=== PATIENT | female | born 1965 | race Two or more races ===

== ENCOUNTER 2017-12-26 18:22 | Emergency (ER) | payer MEDICAID ==
[~2017-12-26] VITALS: Ht 162.6 cm; Wt 68.0 kg
[~2017-12-26 18:22] MED LIST: RANITIDINE HCL150 MG ORAL
[2017-12-26 19:04] VITALS: BP 168/95
[2017-12-26 19:29] LABS: BASOPHILS % (AUTO) 1.2 % (0.0-2.0); EOSINOPHILS % (AUTO) 1.3 % (0.0-3.0); HEMOGLOBIN 11.8 G/DL (12.0-16.0); LYMPHOCYTES % (AUTO) 30.8 % (20.0-45.0); MEAN CORPUSCULAR VOLUME 83 FL (80-99); MONOCYTES % (AUTO) 7.4 % (1.0-10.0); NEUTROPHILS % (AUTO) 59.3 % (45.0-75.0); PLATELET COUNT 377 K/UL (150-450); RED BLOOD COUNT 4.32 M/UL (4.20-5.40); RED CELL DISTRIBUTION WIDTH 14.8 % (11.6-14.8); WHITE BLOOD COUNT 8.8 K/UL (4.8-10.8)
[2017-12-26 19:38] LABS: APPEARANCE,URINE CLEAR; BILIRUBIN, URINE NEGATIVE (NEGATIVE); COLOR,URINE PALE YELLOW; GLUCOSE, URINE (UA) NEGATIVE (NEGATIVE); KETONES,URINE NEGATIVE (NEGATIVE); LEUKOCYTE ESTERASE ,URINE NEGATIVE (NEGATIVE); NITRITE,URINE NEGATIVE (NEGATIVE); PH,URINE 6.5 (4.5-8.0); PROTEIN,URINE NEGATIVE (NEGATIVE); UROBILINOGEN,URINE NORMAL MG/DL (0.0-1.0)
[2017-12-26 19:39] LABS: ANION GAP 13 mmol/L (5-15); BLOOD UREA NITROGEN 8 mg/dL (7-18); CALCIUM 9.2 MG/DL (8.5-10.1); CARBON DIOXIDE 23 MMOL/L (21-32); CHLORIDE 103 MMOL/L (98-107); CREATININE 0.7 MG/DL (0.55-1.30); POTASSIUM 3.2 MMOL/L (3.5-5.1); SODIUM 139 MMOL/L (136-145)
[2017-12-26 19:51] LABS: ALANINE AMINOTRANSFERASE 24 U/L (12-78); ALBUMIN 3.9 G/DL (3.4-5.0); ALBUMIN/GLOBULIN RATIO 0.9 (1.0-2.7); ALKALINE PHOSPHATASE 119 U/L (46-116); ASPARTATE AMINO TRANSFERASE 25 U/L (15-37); BILIRUBIN,TOTAL 0.1 MG/DL (0.2-1.0)
[2017-12-26] MEDS ORDERED: Enalaprilat 2.5mg/2ml Inj IV ONE (20:15)
[2017-12-26 20:17] VITALS: BP 173/87
[2017-12-26 20:59] VITALS: BP 153/76
[2017-12-26 21:00] VITALS: BP 153/76
--- NOTE | 2017-12-27 15:25 | Cardiology Report ---
APPROVED REPORT EKG Measurement Heart [id number] Normal sinus rhythm Nonspecific ST and T wave abnormality Abnormal ECG
--- NOTE | 2017-12-30 16:34 | Emergency Room Report ---
History of Present Illness General Chief Complaint: Headache Source: Patient Present Illness HPI Patient presented for headache.The patient reports having a gradual onset of headache which he describes as frontal in nature. She reports having throbbing sensation without evident vomiting. She had denies any weakness. She reports having some numbness. She denies any chest discomfort. She had not been having shortness of breath. Patient had recently been told that she had hypertension but is not currently taking medications. Allergies: Coded Allergies: No Known Allergies (Unverified , 10/04/15) Patient History Past Medical History: see triage record Reviewed Nursing Documentation: PMH: Agreed; PSxH: Agreed Nursing Documentation-PM Past Medical History: No History, Except For Hx Hypertension: Yes Review of Systems All Other Systems: negative except mentioned in HPI Physical Exam Vital Signs Date Time Temp Pulse Resp B/P (MAP) Pulse Ox O2 Delivery O2 Flow Rate FiO2 12/26/17 18:41 98.3 86 16 188/103 97 98.2 12/26/17 20:59 Room Air Sp02 EP Interpretation: reviewed, normal General Appearance: normal inspection, well appearing, no apparent distress, alert, GCS 15 Head: atraumatic ENT: normal ENT inspection, hearing grossly normal, normal voice Neck: normal inspection, full range of motion, supple, no bony tend Respiratory: normal inspection, lungs clear, normal breath sounds, no respiratory distress, no retraction, no wheezing Cardiovascular #1: regular rate, rhythm, no edema Gastrointestinal: normal inspection, normal bowel sounds, non tender, soft, no guarding, no hernia Genitourinary: no CVA tenderness Musculoskeletal: normal inspection, back normal, normal range of motion Neurologic: normal inspection, alert, oriented x3, responsive, director of business services III-XII nml as tested, motor strength/tone normal, speech normal Psychiatric: normal inspection, judgement/insight normal, mood/affect normal Skin: normal inspection, normal color, no rash Medical Decision Making Diagnostic Impression: Primary Impression: Hypertension Additional Impressions: Hypokalemia Headache ER Course Patient is a for headache. Differential diagnoses included but was not limited to skull fracture, subarachnoid hemorrhage, meningitis, aneurysm, mass lesion, intracranial hemorrhage.Because of complexity of patient's case laboratory testing and imaging studies were ordered. The patient is given medications for headache. She was noted be mildly hypokalemic. Patient is given oral potassium.The patient noted have a nonfocal neurologic exam.The patient was given medications with improvement in her headache and blood pressure. He patient is advised to follow up with primary care doctor in 1-2 days. Patient is advised to return if any worsening condition or if any changes in status that are concerning. This report is dictated with [employer] gun stri[employer] software which may occasionally lead to discrepancies related to use of this software. Labs Test 12/26/17 18:50 White Blood Count 8.8 K/UL (4.8-10.8) Red Blood Count 4.32 M/UL (4.20-5.40) Hemoglobin 11.8 G/DL (12.0-16.0) Hematocrit 36.0 % (37.0-47.0) Mean Corpuscular Volume 83 FL (80-99) Mean Corpuscular Hemoglobin 27.4 PG (27.0-31.0) Mean Corpuscular Hemoglobin Concent 32.9 G/DL (32.0-36.0) Red Cell Distribution Width 14.8 % (11.6-14.8) Platelet Count 377 K/UL (150-450) Mean Platelet Volume 5.4 FL (6.5-10.1) Neutrophils (%) (Auto) 59.3 % (45.0-75.0) Lymphocytes (%) (Auto) 30.8 % (20.0-45.0) Monocytes (%) (Auto) 7.4 % (1.0-10.0) Eosinophils (%) (Auto) 1.3 % (0.0-3.0) Basophils (%) (Auto) 1.2 % (0.0-2.0) Urine Color Pale yellow Urine Appearance Clear Urine pH 6.5 (4.5-8.0) Urine Specific [place] 1.005 (1.005-1.035) Urine Protein Negative (NEGATIVE) Urine Glucose (UA) Negative (NEGATIVE) Urine Ketones Negative (NEGATIVE) Urine Blood Negative (NEGATIVE) Urine Nitrite Negative (NEGATIVE) Urine Bilirubin Negative (NEGATIVE) Urine Urobilinogen Normal MG/DL (0.0-1.0) Urine Leukocyte Esterase Negative (NEGATIVE) Urine RBC 0-2 /HPF (0 - 2) Urine WBC 0-2 /HPF (0 - 2) Urine Squamous Epithelial Cells Few /LPF (NONE/OCC) Urine Bacteria Few /HPF (NONE) Sodium Level 139 MMOL/L (136-145) Potassium Level 3.2 MMOL/L (3.5-5.1) Chloride Level 103 MMOL/L (98-107) Carbon Dioxide Level 23 MMOL/L (21-32) Anion Gap 13 mmol/L (5-15) Blood Urea Nitrogen 8 mg/dL (7-18) Creatinine 0.7 MG/DL (0.55-1.30) Estimat Glomerular Filtration Rate > 60 mL/min (>60) Glucose Level 100 MG/DL (74-106) Calcium Level 9.2 MG/DL (8.5-10.1) Total Bilirubin 0.1 MG/DL (0.2-1.0) Aspartate Amino Transf (AST/SGOT) 25 U/L (15-37) Alanine Aminotransferase (ALT/SGPT) 24 U/L (12-78) Alkaline Phosphatase 119 U/L (46-116) Troponin I 0.000 ng/mL (0.000-0.056) Total Protein 8.3 G/DL (6.4-8.2) Albumin 3.9 G/DL (3.4-5.0) Globulin 4.4 g/dL Albumin/Globulin Ratio 0.9 (1.0-2.7) Lipase 122 U/L (73-393) Thyroid Stimulating Hormone (TSH) 3.147 uiU/mL (0.358-3.740) Last Vital Signs Date Time Temp Pulse Resp B/P (MAP) Pulse Ox O2 Delivery O2 Flow Rate FiO2 12/26/17 21:00 98.5 96 16 153/76 98 Room Air Status: improved Disposition: HOME, SELF-CARE Condition: Stable Patient Instructions: Hypokalemia Taurus Llamas MD Dec 30, 2017 16:34
== END 2017-12-26 21:07 | disposition home or self-care (01) ==
LOC: EMR 19:00
DX: R51 Headache (principal); R20.0 Anesthesia of skin; I10 Essential (primary) hypertension; M79.603 Pain in arm, unspecified; E87.6 Hypokalemia
CPT/HCPCS: 36415; 80053; 81001; 83690; 84443; 84484; 85025; 93005; 96365; 96375; 99284

== ENCOUNTER 2018-09-27 16:11 | Emergency (ER) | payer MEDICAID ==
[~2018-09-27] VITALS: Ht 167.6 cm; Wt 63.5 kg
[2018-09-27] MEDS ORDERED: LOSARTAN-HCTZ1 EAC2 ORAL (16:44)
[2018-09-27] MEDS ORDERED: RANITIDINE HCL150 M1 ORAL (16:44)
--- NOTE | 2018-09-27 17:14 | Emergency Room Report ---
History of Present Illness General Chief Complaint: Abdominal Pain Source: Patient Present Illness HPI 53-year-old female with history of gastritis here with her daughter complaining of 3 months of left-sided abdominal pain after eating any meal. Patient is Fish been to her primary care provider and was diagnosed with gastritis told not to intake spicy acidic food and has been started on ranitidine. However patient reports that she starts feeling pain in the epigastric and left upper quadrant about 30 minutes after eating any food for the past 3 months. Denies nausea vomiting, acid reflux, fever and chills, diarrhea and constipation. Denies chest pain, shortness of breath, palpitation, urinary symptoms. Patient is stable with stable vital signs. Reports that she occasionally drinks beer. Denies blood in her urine and her stool. Allergies: Coded Allergies: No Known Allergies (Unverified , 09/27/18) Patient History Past Medical History: see triage record Past Surgical History: unable to obtain Pertinent Family History: none Last Menstrual Period: 4 YEARS AGO Now: No Immunizations: UTD Reviewed Nursing Documentation: PMH: Agreed; PSxH: Agreed Nursing Documentation-PMH Past Medical History: No History, Except For Hx Hypertension: Yes Review of Systems All Other Systems: negative except mentioned in HPI Physical Exam Vital Signs Date Time Temp Pulse Resp B/P (MAP) Pulse Ox O2 Delivery O2 Flow Rate FiO2 09/27/18 16:39 98.2 82 16 179/92 (121) 97 Room Air Sp02 EP Interpretation: reviewed, normal General Appearance: normal inspection, well appearing, no apparent distress, alert, GCS 15 Head: normocephalic, atraumatic Eyes: bilateral eye normal inspection, bilateral eye PERRL ENT: normal ENT inspection, hearing grossly normal, no angioedema Neck: normal inspection, full range of motion, supple, thyroid normal, no meningismus, no bony tend Respiratory: normal inspection, chest non-tender, lungs clear, normal breath sounds, no respiratory distress, no accessory muscle use, no wheezing Cardiovascular #1: normal inspection, normal peripheral pulses, no edema, no murmur, normal capillary refill Gastrointestinal: normal inspection, normal bowel sounds, non tender, soft, no organomegaly, no peritonitis, no bruit, non-distended, no guarding, no hernia, no pulsatile mass, no rebound, abnormal bowel sounds Rectal: normal exam, deferred Genitourinary: no CVA tenderness Musculoskeletal: normal inspection, back normal, digits/nails normal Neurologic: normal inspection, alert, oriented x3, responsive Psychiatric: normal inspection, judgement/insight normal, memory normal Skin: no rash, normal color Lymphatic: normal inspection, no adenopathy Medical Decision Making PA Attestation Diagnosis and treatment plans were reviewed and discussed with my supervising physician Dr. Montelongo Diagnostic Impression: Primary Impression: Gastritis ER Course 53-year-old female with history of gastritis here with her daughter complaining of 3 months of left-sided abdominal pain after eating any meal. Patient is Fish been to her primary care provider and was diagnosed with gastritis told not to intake spicy acidic food and has been started on ranitidine. However patient reports that she starts feeling pain in the epigastric and left upper quadrant about 30 minutes after eating any food for the past 3 months. Denies nausea vomiting, acid reflux, fever and chills, diarrhea and constipation. Denies chest pain, shortness of breath, palpitation, urinary symptoms. Patient is stable with stable vital signs. Reports that she occasionally drinks beer. Denies blood in her urine and her stool. Ddx considered but are not limited to: Gastric ulcer, peptic ulcer, gastritis, gastroenteritis, [place] Vital signs: are WNL, pt. is afebrile H&PE are most consistent with: Gastritis ORDERS: Omeprazole, EKG ED INTERVENTIONS: None required at this time. DISCHARGE: At this time pt. is stable for d/c to home. Will provide printed patient care instructions, and any necessary prescriptions. Care plan and follow up instructions have been discussed with the patient prior to discharge. 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 If worsening symptoms nausea vomiting or blood in stool return to the emergency room. EKG Diagnostic Results Rate: normal Rhythm: NSR ST Segments: no acute changes Last Vital Signs Date Time Temp Pulse Resp B/P (MAP) Pulse Ox O2 Delivery O2 Flow Rate FiO2 09/27/18 16:39 98.2 82 16 179/92 (121) 97 Room Air Disposition: HOME, SELF-CARE Condition: Stable Scripts Pantoprazole* (PANTOPRAZOLE*) 40 Mg Tablet.dr 40 MG ORAL EVERY 12 HOURS, #30 TAB Prov: Felecia Read 09/27/18 Patient Instructions: Gastritis, Adult Additional Instructions: See primary doctor for follow-up and referral to gastroenterology for endoscopy at this time since you have had these symptoms for 3 months and no chest pain no other associated symptoms other than pain upon eating spicy, acidic food and alcohol to be discharged and follow-up with her primary care provider Felecia Read Sep 27, 2018 17:14
[2018-09-27] MEDS ORDERED: PANTOPRAZOLE SO40 MG ORAL (17:16)
[2018-09-27 17:17] VITALS: BP 179/92
[2018-09-27 17:33] VITALS: BP 133/65
--- NOTE | 2018-09-27 17:37 | NUR ---
ED Nurse Note: Pt cleared by health care Provider for discharge. DC instructions/prescription was given and explained to pt and verbalized understanding of teachings. All medical deviecs such as ID band removed. Pt is AAO x4, ambulatory and left with all personal belongings.
== END 2018-09-27 17:38 | disposition home or self-care (01) ==
LOC: EMR 17:34
DX: K29.70 Gastritis, unspecified, without bleeding (principal); I10 Essential (primary) hypertension
CPT/HCPCS: 93005; 99283